=== PATIENT | male | born 2000 | race Hispanic/Latino ===

== ENCOUNTER 2022-07-21 11:46 | Emergency (ER) | END 2022-07-21 13:22 | disposition home or self-care (01) | LOC: CSHERS 11:46 | DX: S46.912A Strain of unspecified muscle, fascia and tendon at shoulder and upper arm level, left arm, initial encounter (principal); W19.XXXA Unspecified fall, initial encounter; Y93.66 Activity, soccer ==

== ENCOUNTER 2025-08-12 20:24 | Emergency (ER) | payer SELFPAY ==
[2025-08-12] MEDS ORDERED: diphenhydrAMINE 25 MG CAP ONE (21:27)
[2025-08-12] MEDS ORDERED: diphenhydrAMINE 50 MG/ML VIAL ONE (21:41)
[2025-08-12] MEDS ORDERED: Prochlorperazine 10 MG/2 ML VIAL ONE (21:41)
[2025-08-12] MEDS ORDERED: Famotidine 20 MG TAB ONE (22:01)
[2025-08-12 22:05] LABS: Glucose, Urine (Dipstick) Normal (Negative); Leukocyte Negative (Negative); Protein, Urine (Dipstick) Negative (Neg-Trace); Specific Gravity, Urine 1.015 (1.005-1.030)
[2025-08-12 22:06] LABS: #Basophils Less than 0.03 10x3/uL (0.0-0.2); #Eosinophils 0.22 10x3/uL (0.0-0.5); #Monocytes 0.42 10x3/uL (0.0-1.1); #Neutrophils 2.85 10x3/uL (1.5-8.4); %Basophils 0.4 % (0.0-2.0); %Eosinophils 4.2 % (0.0-6.0); %Lymphocytes 33.6 % (18.0-47.0); %Monocytes 7.9 % (0.0-10.0); %Neutrophils 53.7 % (40.0-75.0); Hematocrit 41.0 % (38.8-50.0); Hemoglobin 14.2 g/dL (13.5-17.5); Mean Corpuscular Hemoglobin 29.8 pg (27.0-33.0); Mean Corpuscular Volume 86.1 fL (81.2-95.1); Platelet Count 229 10x3/uL (150-450); Red Blood Cell (RBC) Count 4.76 10x6/uL (4.32-5.72); White Blood Cell (WBC) Count 5.30 10x3/uL (3.5-10.5)
[2025-08-12 22:25] LABS: Bacteria/HPF Rare-Few HPF (None Seen); CAUTI Indications for Culture Pelvic or flank pain; RBC/HPF 0-3 HPF (0-3); WBC/HPF 0-3 HPF (0-3)
[2025-08-12 22:26] LABS: Urine Culture Reflex No No
[2025-08-12 22:57] LABS: ALT (SGPT) 14 U/L (Less than 45); AST (SGOT) 22 U/L (11-34); Albumin 4.6 g/dL (3.1-4.5); Alkaline Phosphatase 70 U/L (40-110); Anion Gap 14 mmol/L (10-20); BUN (Urea Nitrogen) 8 mg/dL (8.9-20.6); Bilirubin, Total 1.3 mg/dL (0.3-1.2); Calc. Creatinine Clearance 0 mL/min (70-130); Calcium 9.7 mg/dL (7.8-10.44); Carbon Dioxide 24 mmol/L (22-29); Chloride 102 mmol/L (98-107); Globulin 3.1 g/dL (2.4-3.5); Glucose 102 mg/dL (70-105); Lipase 14 U/L (8-78); Potassium 3.6 mmol/L (3.5-5.1); Sodium 136 mmol/L (136-145)
== END 2025-08-12 23:30 | disposition home or self-care (01) ==
LOC: CSHERS 20:24
DX: K29.70 Gastritis, unspecified, without bleeding (principal); E86.0 Dehydration
CPT/HCPCS: 74176; 80053; 81001; 83690; 85025; 96365; 96375; J0780; J1200; Q0162